=== PATIENT | male | born 1955 | race African-American/Black ===

== ENCOUNTER 2017-04-17 00:19 | Emergency (ER) | payer MEDICAID ==
[~2017-04-17] VITALS: Ht 177.8 cm; Wt 77.1 kg
[~2017-04-17 00:19] MED LIST: CLOP75TA16 PO; GLIPIZIDE; METFORMIN; ROSU20TA PO; [UNRECOGNIZED DRUG - OTHER]
[2017-04-17 07:25] LABS: BASOPHILS % 0.7 % (0.0-2.0); EOSINOPHILS % 1.1 % (0.0-5.0); HEMATOCRIT. 36.4 % (42.0-52.0); HEMOGLOBIN. 12.3 g/dL (14.0-18.0); LYMPHOCYTES % 30.5 % (20.0-50.0); MEAN CORPUSCULAR HEMOGLOBIN 26.9 pg (28.0-32.0); MEAN CORPUSCULAR VOLUME 79.8 fL (80.0-94.0); MEAN PLATELET VOLUME 8.6 fl (7.4-10.4); MONOCYTES % 8.5 % (2.0-8.0); NEUTROPHILS % 59.2 % (40.0-76.0); PLATELET 246 x1000/uL (130-400); RED BLOOD CELL COUNT 4.57 mill/uL (4.7-6.1); RED CELL DISTRIBUTION WIDTH 14.6 % (11.6-14.6)
[2017-04-17 07:31] LABS: CHLORIDE 100 mEq/L (98-107)
[2017-04-17 07:37] LABS: CARBON DIOXIDE 28 mEq/L (21-32); ETHANOL BLOOD < 10 mg/dL
[2017-04-17 08:41] LABS: CLARITY URINE CLEAR (CLEAR); COLOR URINE YELLOW (YELLOW); KETONES URINE NEGATIVE (NEGATIVE); LEUKOCYTE ESTERASE URINE NEGATIVE (NEGATIVE); NITRITE URINE NEGATIVE (NEGATIVE); OCCULT BLOOD URINE NEGATIVE (NEGATIVE); PROTEIN URINE NEGATIVE (NEGATIVE); SPECIFIC GRAVITY URINE 1.015 (1.005-1.030)
[2017-04-17] MEDS ORDERED: KETOROLAC 60MG/2ML VIAL IM STA (08:47)
[2017-04-17 09:07] LABS: *AMPHETAMINES SCREEN URINE NEGATIVE (NEGATIVE); *BARBITURATES SCREEN URINE NEGATIVE (NEGATIVE); *BENZODIAZEPINES SCREEN URINE NEGATIVE (NEGATIVE); *COCAINE SCREEN URINE NEGATIVE (NEGATIVE); CANNABINOID URINE SCREEN NEGATIVE (NEGATIVE); METHADONE URINE SCREEN NEGATIVE (NEGATIVE); OPIATES URINE SCREEN NEGATIVE (NEGATIVE); PHENCYCLIDINE URINE SCREEN NEGATIVE (NEGATIVE)
[2017-04-17 09:57] VITALS: BP 145/72
== END 2017-04-17 11:30 | disposition home or self-care (01) ==
LOC: ER 00:19
DX: G89.29 Other chronic pain (principal); M25.561 Pain in right knee; M25.562 Pain in left knee; E11.9 Type 2 diabetes mellitus without complications; Z79.84 Long term (current) use of oral hypoglycemic drugs; Z90.49 Acquired absence of other specified parts of digestive tract; Z95.1 Presence of aortocoronary bypass graft
CPT/HCPCS: 36415; 80048; 80305; 80307; 80329; 81003; 85025; 93971; 96372; 99285; G0482; J1885; Z7610

== ENCOUNTER 2018-04-13 15:55 | Inpatient (IN) | payer MEDICAID, OTHER ==
[~2018-04-13] VITALS: Ht 167.6 cm; Wt 74.4 kg
[~2018-04-13 15:55] MED LIST changes: +ASPI-1160 PO; +GABA-529 PO; +KETO15CR2 TOP; +LIP40 PO; +TERB30CR TOP
[2018-04-13] MEDS ORDERED: SODIUM CHLORIDE 0.9% 1,000 ML IV ONE (18:49)
[2018-04-13] MEDS ORDERED: CLINDAMYCIN 900 MG in DEXTROSE 5% WATER 50 ML IV ONE (19:00)
[2018-04-13 19:58] LABS: BASOPHILS % 0.8 % (0.0-2.0); EOSINOPHILS % 0.8 % (0.0-5.0); HEMATOCRIT. 37.2 % (42.0-52.0); HEMOGLOBIN. 12.4 g/dL (14.0-18.0); LYMPHOCYTES % 24.7 % (20.0-50.0); MEAN CORPUSCULAR HEMOGLOBIN 25.9 pg (28.0-32.0); MEAN CORPUSCULAR VOLUME 77.5 fL (80.0-94.0); MEAN PLATELET VOLUME 8.9 fl (7.4-10.4); MONOCYTES % 6.6 % (2.0-8.0); NEUTROPHILS % 67.1 % (40.0-76.0); PLATELET 207 x1000/uL (130-400); RED CELL DISTRIBUTION WIDTH 14.5 % (11.6-14.6)
[2018-04-13 20:02] LABS: CHLORIDE 102 mEq/L (98-107)
[2018-04-13] MEDS ORDERED: MORPHINE SULFATE 10 MG/ML CPJ IV ONE (20:30)
[2018-04-13] MEDS ORDERED: DOCUSATE SODIUM 100MG CAPSULE PO PRN (22:00)
[2018-04-13] MEDS ORDERED: IPRATROPIUM/ALBUTEROL 0.5-3(2.5)MG/3ML NEB INH PRN (22:00)
[2018-04-13] MEDS ORDERED: ZOLPIDEM TARTRATE 5MG TABLET PO PRN (22:00)
[2018-04-13] MEDS ORDERED: NA PHOS,M-B/NA PHOS,DI-BA ENEMA 118ML PR PRN (22:00)
[2018-04-13] MEDS ORDERED: MAGNESIUM/ALUMINUM HYDROXIDE/SIMETHICONE 30ML UDC PO PRN (22:00)
[2018-04-13] MEDS ORDERED: CLONIDINE 0.1MG TABLET PO PRN (22:00)
[2018-04-13] MEDS ORDERED: GUAIFENESIN 200MG/10ML SUGAR FREE UDC PO PRN (22:00)
[2018-04-13] MEDS ORDERED: LORAZEPAM 1MG TABLET PO PRN (22:00)
[2018-04-13] MEDS ORDERED: NITROGLYCERIN 0.4MG TABLET SL SL PRN (22:00)
[2018-04-13] MEDS ORDERED: ONDANSETRON HCL 4MG/2ML INJ IV PRN (22:00)
[2018-04-14] MEDS ORDERED: ASCO-339 PO (01:29)
[2018-04-14] MEDS ORDERED: ZINC220T PO (01:30)
[2018-04-14] MEDS ORDERED: ACET-2178 PO (01:35)
[2018-04-14] MEDS ORDERED: AMIN30LI2 PO (01:35)
[2018-04-14] MEDS ORDERED: DOCU-150 PO (01:35)
[2018-04-14] MEDS ORDERED: TRAM50TA3 PO (01:49)
[2018-04-14] MEDS ORDERED: GLIP5TAB12 PO (01:49)
[2018-04-14] MEDS ORDERED: IPRA3AMP31 NEB (01:49)
[2018-04-14] MEDS ORDERED: METF-414 PO (01:49)
[2018-04-14 02:00] VITALS: BP 155/77
[2018-04-14] MEDS: PIPERACILLIN/TAZ 3.375G PREMIX 50 ML IV SCH ×3 (03:16→17:18)
[2018-04-14] MEDS: VANCOMYCIN 1250MG in DEXTROSE 5% WATER 250ML IV SCH ×2 (03:17→17:17)
[2018-04-14] MEDS: KETOROLAC 15MG/ML VIAL IV PRN ×2 (03:18→17:21)
[2018-04-14 04:00] VITALS: BP 142/78
[2018-04-14] MEDS: GABAPENTIN 100MG CAPSULE PO SCH ×3 (05:25→21:02)
[2018-04-14 08:00] VITALS: BP 128/72
[2018-04-14] MEDS: ZINC SULFATE 220 MG ( 50 ) CAPSULE PO SCH (10:34)
[2018-04-14] MEDS: ASCORBIC ACID 500 MG TABLET PO SCH ×2 (10:34→17:22)
[2018-04-14] MEDS: FAMOTIDINE 20MG TABLET PO SCH ×2 (10:34→21:02)
[2018-04-14] MEDS: CLOPIDOGREL 75MG TABLET PO SCH (10:34)
[2018-04-14] MEDS: ASPIRIN 325MG EC TABLET PO SCH (10:35)
[2018-04-14] MEDS: ACETAMINOPHEN 325MG TABLET PO PRN (10:35)
[2018-04-14] MEDS: LISINOPRIL 20MG TABLET PO SCH ×2 (10:35→21:03)
[2018-04-14] MEDS: ENOXAPARIN 40MG/0.4ML SYR SUBCUT SCH (10:36)
[2018-04-14 12:00] VITALS: BP 142/61
[2018-04-14 20:00] VITALS: BP 112/67
[2018-04-15] VITALS: BP 150/81
[2018-04-15] MEDS: KETOROLAC 15MG/ML VIAL IV PRN ×3 (00:05→17:17)
[2018-04-15] MEDS: PIPERACILLIN/TAZ 3.375G PREMIX 50 ML IV SCH ×3 (01:10→17:01)
[2018-04-15] MEDS: VANCOMYCIN 1250MG in DEXTROSE 5% WATER 250ML IV SCH ×2 (03:09→15:21)
[2018-04-15] MEDS: GABAPENTIN 100MG CAPSULE PO SCH ×3 (06:08→21:37)
[2018-04-15 08:00] VITALS: BP 145/88
[2018-04-15] MEDS ORDERED: DEXTROSE 50% WATER 50ML SYRINGE IV PRN (08:15)
[2018-04-15] MEDS: ENOXAPARIN 40MG/0.4ML SYR SUBCUT SCH (08:31)
[2018-04-15] MEDS: ZINC SULFATE 220 MG ( 50 ) CAPSULE PO SCH (08:32)
[2018-04-15] MEDS: CLOPIDOGREL 75MG TABLET PO SCH (08:32)
[2018-04-15] MEDS: ASPIRIN 325MG EC TABLET PO SCH (08:32)
[2018-04-15] MEDS: LISINOPRIL 20MG TABLET PO SCH ×2 (08:32→21:37)
[2018-04-15] MEDS: ASCORBIC ACID 500 MG TABLET PO SCH ×2 (08:32→17:01)
[2018-04-15] MEDS: FAMOTIDINE 20MG TABLET PO SCH ×2 (08:32→21:37)
[2018-04-15] MEDS: INSULIN GLARGINE UD 100 UNITS/ML SYR SUBCUT SCH (10:03)
[2018-04-15] MEDS: BLOOD SUGAR DIAGNOSTIC STRIP TEST SCH ×3 (11:59→21:00)
[2018-04-15 12:00] VITALS: BP 138/80
[2018-04-15] MEDS: INSULIN LISPRO 100 UNITS/ML SUBCUT SCH ×3 (12:58→22:54)
[2018-04-15 16:00] VITALS: BP 134/64
[2018-04-15 20:00] VITALS: BP 139/83
[2018-04-15] MEDS: BACITRACIN/POLYMYXIN B SULFATE OINT 15GM TOP SCH (21:38)
[2018-04-15] MEDS: ACETAMINOPHEN 325MG TABLET PO PRN (22:35)
[2018-04-16] VITALS (7 sets, daily range): BP systolic 102–161; BP diastolic 48–93
[2018-04-16] MEDS: PIPERACILLIN/TAZ 3.375G PREMIX 50 ML IV SCH ×3 (02:31→10:19)
[2018-04-16] MEDS: KETOROLAC 15MG/ML VIAL IV PRN ×2 (02:34→23:17)
[2018-04-16] MEDS: VANCOMYCIN 1250MG in DEXTROSE 5% WATER 250ML IV SCH (04:34)
[2018-04-16] MEDS: BACITRACIN/POLYMYXIN B SULFATE OINT 15GM TOP SCH ×3 (06:33→22:57)
[2018-04-16] MEDS: GABAPENTIN 100MG CAPSULE PO SCH ×3 (06:33→22:56)
[2018-04-16] MEDS: BLOOD SUGAR DIAGNOSTIC STRIP TEST SCH ×4 (08:11→21:00)
[2018-04-16] MEDS: LISINOPRIL 20MG TABLET PO SCH ×2 (08:55→22:56)
[2018-04-16] MEDS: FAMOTIDINE 20MG TABLET PO SCH ×2 (08:56→22:56)
[2018-04-16] MEDS: CLOPIDOGREL 75MG TABLET PO SCH (08:56)
[2018-04-16] MEDS: ZINC SULFATE 220 MG ( 50 ) CAPSULE PO SCH (08:56)
[2018-04-16] MEDS: ASPIRIN 325MG EC TABLET PO SCH (08:56)
[2018-04-16] MEDS: ENOXAPARIN 40MG/0.4ML SYR SUBCUT SCH (08:56)
[2018-04-16] MEDS: ASCORBIC ACID 500 MG TABLET PO SCH ×2 (08:56→16:48)
[2018-04-16] MEDS: INSULIN LISPRO 100 UNITS/ML SUBCUT SCH ×4 (09:05→23:23)
[2018-04-16] MEDS: INSULIN GLARGINE UD 100 UNITS/ML SYR SUBCUT SCH (10:23)
[2018-04-17] VITALS (7 sets, daily range): BP systolic 131–155; BP diastolic 51–85
[2018-04-17] MEDS: PIPERACILLIN/TAZ 3.375G PREMIX 50 ML IV SCH ×2 (02:01→09:24)
[2018-04-17] MEDS: VANCOMYCIN 1250MG in DEXTROSE 5% WATER 250ML IV SCH (03:33)
[2018-04-17] MEDS: GABAPENTIN 100MG CAPSULE PO SCH ×3 (05:21→21:59)
[2018-04-17] MEDS: BACITRACIN/POLYMYXIN B SULFATE OINT 15GM TOP SCH ×3 (05:22→21:59)
[2018-04-17] MEDS: BLOOD SUGAR DIAGNOSTIC STRIP TEST SCH ×4 (06:41→21:00)
[2018-04-17] MEDS: CLOPIDOGREL 75MG TABLET PO SCH (09:23)
[2018-04-17] MEDS: ZINC SULFATE 220 MG ( 50 ) CAPSULE PO SCH (09:23)
[2018-04-17] MEDS: FAMOTIDINE 20MG TABLET PO SCH ×2 (09:24→21:59)
[2018-04-17] MEDS: LISINOPRIL 20MG TABLET PO SCH ×2 (09:24→21:59)
[2018-04-17] MEDS: ASCORBIC ACID 500 MG TABLET PO SCH ×2 (09:24→17:36)
[2018-04-17] MEDS: ASPIRIN 325MG EC TABLET PO SCH (09:24)
[2018-04-17] MEDS: ENOXAPARIN 40MG/0.4ML SYR SUBCUT SCH (09:25)
[2018-04-17 09:48] LABS: HEMATOCRIT 35.6 % (42.0-52.0); HEMOGLOBIN 11.7 g/dL (14.0-18.0); MEAN CORPUSCULAR HEMOGLOBIN 25.5 pg (28.0-32.0); MEAN CORPUSCULAR VOLUME 77.4 fL (80.0-94.0); PLATELET 212 x1000/uL (130-400); RED BLOOD CELL COUNT 4.61 mill/uL (4.7-6.1); RED CELL DISTRIBUTION WIDTH 14.4 % (11.6-14.6)
[2018-04-17] MEDS: INSULIN LISPRO 100 UNITS/ML SUBCUT SCH ×4 (10:10→22:49)
[2018-04-17] MEDS: INSULIN GLARGINE UD 100 UNITS/ML SYR SUBCUT SCH (10:54)
[2018-04-17] MEDS: CLINDAMYCIN HCL 150MG CAPSULE PO SCH ×2 (13:01→21:59)
[2018-04-18] VITALS: BP 116/80
[2018-04-18 04:00] VITALS: BP 154/81
[2018-04-18] MEDS: GABAPENTIN 100MG CAPSULE PO SCH ×2 (06:33→14:00)
[2018-04-18] MEDS: CLINDAMYCIN HCL 150MG CAPSULE PO SCH ×2 (06:33→14:00)
[2018-04-18] MEDS: BACITRACIN/POLYMYXIN B SULFATE OINT 15GM TOP SCH ×2 (06:35→14:00)
[2018-04-18] MEDS: BLOOD SUGAR DIAGNOSTIC STRIP TEST SCH ×3 (06:38→17:20)
[2018-04-18 08:00] VITALS: BP 98/60
[2018-04-18] MEDS: LISINOPRIL 20MG TABLET PO SCH (09:00)
[2018-04-18] MEDS: FAMOTIDINE 20MG TABLET PO SCH (09:20)
[2018-04-18] MEDS: CLOPIDOGREL 75MG TABLET PO SCH (09:20)
[2018-04-18] MEDS: ZINC SULFATE 220 MG ( 50 ) CAPSULE PO SCH (09:20)
[2018-04-18] MEDS: ASCORBIC ACID 500 MG TABLET PO SCH ×2 (09:20→17:00)
[2018-04-18] MEDS: ENOXAPARIN 40MG/0.4ML SYR SUBCUT SCH (09:21)
[2018-04-18] MEDS: ASPIRIN 325MG EC TABLET PO SCH (09:21)
[2018-04-18] MEDS: INSULIN LISPRO 100 UNITS/ML SUBCUT SCH ×3 (09:35→18:45)
[2018-04-18] MEDS: INSULIN GLARGINE UD 100 UNITS/ML SYR SUBCUT SCH (10:47)
[2018-04-18] MEDS: KETOROLAC 15MG/ML VIAL IV PRN (10:54)
[2018-04-18 12:00] VITALS: BP 111/68
[2018-04-18 15:11] VITALS: BP 116/59
[2018-04-18 16:00] VITALS: BP 110/60
== END 2018-04-18 19:50 | DRG 383 ==
LOC: ER 15:55 → 6EST 21:46 → EDBEDREQ 21:50 → EDBEDREQSVC 21:50 → EDBEDREQ 21:51 → ENRESERV 22:36
PROVIDERS: ADMIT Internal Medicine; ATTEND Internal Medicine
DX: L03.115 Cellulitis of right lower limb (principal); E11.621 Type 2 diabetes mellitus with foot ulcer; E11.42 Type 2 diabetes mellitus with diabetic polyneuropathy; E44.0 Moderate protein-calorie malnutrition; L97.519 Non-pressure chronic ulcer of other part of right foot with unspecified severity; E78.00 Pure hypercholesterolemia, unspecified; I10 Essential (primary) hypertension; I25.10 Atherosclerotic heart disease of native coronary artery without angina pectoris; J44.9 Chronic obstructive pulmonary disease, unspecified; Z96.659 Presence of unspecified artificial knee joint; Z95.1 Presence of aortocoronary bypass graft; Z90.49 Acquired absence of other specified parts of digestive tract; Z68.26 Body mass index [BMI] 26.0-26.9, adult; Z79.82 Long term (current) use of aspirin; Z79.4 Long term (current) use of insulin; Z79.899 Other long term (current) drug therapy; Z86.718 Personal history of other venous thrombosis and embolism
CPT/HCPCS: 36415; 73630; 80061; 80202; 82607; 82746; 82962; 83036; 83540; 83550; 83605; 84134; 84145; 84484; 85027; 93005; 93970; 96374; 97166; 99285; C1893; J1650; J1815; J1885; J2270; J2543; J3370; J3490; J7030; J7040; J7050; J7060